=== PATIENT | male | born 1980 | race Caucasian/White ===

== ENCOUNTER 2020-01-28 23:48 | Emergency (ER) | payer OTHER, SELFPAY ==
--- NOTE | ~2020-01-28 | CT_ITS ---
EXAMINATION: CT abdomen pelvis w con DATE: 01/29/2020 05:59 INDICATION: Epigastric abdominal pain. TECHNIQUE: Computed tomography (CT) of the abdomen and pelvis was performed with 100 mL Omnipaque 350 intravenous contrast. Automated exposure control and iterative reconstruction technique were employe d. The dose-length product was 461.97 mGy-cm. COMPARISON: None. FINDINGS: The visualized portions of the lung bases demonstrate minimal atelectasis. No pleural effus ion. The heart size is normal. No pericardial effusion. The liver, spleen, gallbladder, pancreas, adr enal glands, and kidneys are normal. There are multiple dilated loops of small bowel with transition point in right abdomen. The appendix is not visualized. There are no pathologically enlarged lymph no enrique. There is trace ascites. There are chronic bilateral L5 pars defects. There is 9 mm anterolisthes is of L5 on S1. There is moderate lower lumbar spondylosis. IMPRESSION: 1. Small bowel obstruction. Reviewed, dictated and finalized at location A. IMPRESSION: 1. Small bowel obstruction.
[2020-01-28 23:50] VITALS: BP 152/99; PULSE 75; RESP 18; O2SAT 100
--- NOTE | 2020-01-29 00:02 | ECG_ITS ---
Measurements Intervals [place] Rate: 69 P: 35 AL: 145 QRS: 23 QRSD: 97 T: 27 QT: 382 QTc: 409 Interpretive Statements SINUS RHYTHM NORMAL ECG Electronically Signed On 01-29-2020 8:22:56 CDT by Shorty Andino D.O.
--- NOTE | 2020-01-29 00:17 | ED.ABDPAIN ---
HPI - Abdominal Pain General Chief Complaint: Abdominal Pain Stated Complaint: abdominal pain Source: patient Mode of arrival: ambulatory Limitations: no limitations History of Present Illness HPI narrative: This is a 39-year-old male that presents to the emergency department with abdominal pain that has intensified over the last 4 to 5 hours diffuse with some radiation into the epigastric area with nausea and vomiting, patient denies hematemesis, denies fever or chills, no chest pain no shortness of breath. Patient had a similar episode approximately 1 year ago and was told that it was gallstones. Patient no significant past medical history, social drinker no tobacco use MD elicited complaint: abdominal pain Pertinent past history: none Onset (ago): hour(s) Pain Consistency: constant Location: diffuse and epigastric Severity: severe Pain scale (0-10): 10 Quality: aching and sharp Radiation: epigastric Exacerbating factors: vomiting Relieving factors: nothing Associated symptoms: nausea and vomiting Related Data Home Medications Medication Instructions Recorded Confirmed No Home Medications 01/28/20 01/28/20 Allergies Allergy/AdvReac Type Severity Reaction Status Date / Time No Known Allergies Allergy Verified 01/28/20 23:57 Review of Systems Review of Systems: All systems reviewed & are unremarkable except as noted in HPI and below PMFSH Past Medical History Medical History (Updated 01/29/20 @ 01:57 by David Ackerman MD) Intussusception Patient denies medical problems Exam Const: General: no acute distress, alert and ill appearing Orientation/consciousness: patient oriented x3 HENMT: Head: normal to inspection Eyes: Conjunctivae: conjunctivae normal Pupils: Equal, round and reactive pupils present EOM: EOMs intact bilaterally Neck: Neck: normal visual inspection and no lymphadenopathy Chest: Chest palpation & inspection: normal inspection of the chest Resp: Effort & Inspection: normal respiratory effort Auscultation: clear to auscultation bilaterally Cardio: Rate: regular rate Rhythm: regular rhythm GI: GI Palp: Yes Soft to palpation, Yes Tenderness to palpation present (GI) and Yes Guarding due to palpation present (GI) Auscultation: Hyperactive bowel sounds present : General: Yes no CVA tenderness Male General Exam: Yes normal external exam Testes: Testes normal Back/Spine/Pelvis: Back: no CVA tenderness Skin: General skin exam: normal color Rashes: no rashes Neuro: General: patient oriented x3, moves all extremities, no meningeal signs and no focal motor deficits Extrem: General: normal to inspection and no pedal edema Psych: Appearance: grossly normal and well kempt Mental Status: mental status grossly normal Affect: normal affect Attitude: cooperative Thought content: Yes Normal thought content present Course Vital Signs Vital signs: Vital Signs Pulse Rate 75 01/28/20 23:50 Respiratory Rate 18 01/28/20 23:50 Blood Pressure 152/99 H 01/28/20 23:50 Pulse Oximetry 100 01/28/20 23:50 Pulse Rate 75 01/28/20 23:50 Respiratory Rate 18 01/28/20 23:50 Blood Pressure 152/99 H 01/28/20 23:50 Pulse Oximetry 100 01/28/20 23:50 MDM - Abdominal Pain Lab Data Result diagrams: 01/29/20 00:02 01/29/20 00:02 Labs: Lab Results 01/29/20 01/29/20 01/29/20 Range/Units 00:02 00:02 00:02 WBC 13.5 H (4.8-10.8) K/mm3 RBC 6.24 H (4.70-6.10) M/mm3 Hgb 17.9 (14.0-18.0) g/dL Hct 51.6 (40.0-54.0) % MCV 82.7 (78.0-102.0) fL MCH 28.7 (27.0-31.0) pg MCHC 34.7 (32.0-36.0) g/dL RDW 12.1 (11.6-14.4) % Plt Count 213 (150-420) K/mm3 MPV 9.2 (8.7-11.0) fl Immature Gran % (Auto) 0.4 H (0.0-0.0) % Neut % (Auto) 84.0 H (50.0-70.0) % Lymph % (Auto) 7.2 L (18.0-42.0) % [place] % (Auto) 8.0 (2.0-11.0) % Eos % (Auto) 0.2 L (1.0-6.0) % Baso % (Auto) 0.2
[2020-01-29] MEDS: ONDANSETRON INJ 4 MG/2 ML VIAL IV PUSH (00:20)
[2020-01-29] MEDS: MORPHINE SULFATE 4 MG/ML INJ IV PUSH (00:26)
[2020-01-29] MEDS: SODIUM CHLORIDE 0.9% IV 1,000 ML 999 ML IV CONT ×2 (00:28→01:50)
[2020-01-29] MEDS: PANTOPRAZOLE SODIUM IV 40 MG VIAL IV PUSH (00:28)
[2020-01-29 00:30] LABS: Hematocrit 51.6 % (40.0-54.0); Hemoglobin 17.9 g/dL (14.0-18.0); Mean Corpuscular Volume 82.7 fL (78.0-102.0); Red Blood Count 6.24 M/mm3 (4.70-6.10); White Blood Count 13.5 K/mm3 (4.8-10.8)
[2020-01-29 00:31] LABS: Immature Granulocyte Percent A 0.4 % (0.0-0.0); Mean Corpuscular HGB Conc 34.7 g/dL (32.0-36.0); Mean Corpuscular Hemoglobin 28.7 pg (27.0-31.0); Mean Platelet Volume 9.2 fl (8.7-11.0); Platelet Count Result 213 K/mm3 (150-420); Red Cell Distribution Width 12.1 % (11.6-14.4)
[2020-01-29 00:32] LABS: Basophils Absolute Auto 0.03 K/mm3 (0.00-0.10); Basophils Percent Auto 0.2 % (0.0-1.0); Eosinophils Absolute Auto 0.03 K/mm3 (0.02-0.50); Eosinophils Percent Auto 0.2 % (1.0-6.0); Immature Granulocyte Absolute 0.06 K/mm3 (0.00-0.00); Lymphocytes Absolute Auto 0.97 K/mm3 (1.10-4.50); Lymphocytes Percent Auto 7.2 % (18.0-42.0); Monocytes Absolute Auto 1.08 K/mm3 (0.10-0.90); Neutrophils Absolute Auto 11.4 K/mm3 (1.7-7.2)
[2020-01-29 00:47] LABS: INR 1.1; Prothrombin Time 10.9 Seconds (9.64-11.0)
[2020-01-29 00:48] LABS: Alanine Aminotransferase 28 U/L (16-63); Albumin Level 5.2 g/dL (3.4-5.0); Alkaline Phosphatase 75 U/L (46-116); Aspartate Amino Transferase 19 U/L (15-37); Bilirubin,Total 0.8 mg/dL (0.00-1.00); Blood Urea Nitrogen 17 mg/dL (7-18); Calcium 10.3 mg/dL (8.5-10.1); Carbon Dioxide 28 mmol/L (21-32); Chloride 99 mmol/L (98-108); Estimated CRCL calculation 85 ml/min; Estimated Glomerular Filt Rate > 60; Glucose 167 mg/dL (70-99); Lipase 135 U/L (73-393); Osmolality Calculated 293 mOsm/kg (285-295); Sodium 139 mmol/L (136-145); Total Protein 8.9 g/dL (6.4-8.2)
[2020-01-29 00:50] LABS: Lactic Acid 1.9 mmol/L (0.4-2.0); Troponin I < 0.02 ng/mL (0.00-0.056)
--- NOTE | 2020-01-29 01:27 | PC.NURSE ---
BROOK discussed CT results c pt. and pt. requests transfer to [facility]. Jamie Monreal notified, info. given and will await call back.
[2020-01-29 01:49] VITALS: BP 141/86; PULSE 100; RESP 20; O2SAT 98
--- NOTE | 2020-01-29 02:00 | PC.NURSE ---
Call placed back to Jason per Dr. Ackerman request, Jocelin states she will call surgeon per hospitalist request. Awaiting phone call back from Jason Abraham
[2020-01-29 02:16] VITALS: BP 137/84; PULSE 88; RESP 18; O2SAT 98
[2020-01-29] MEDS: MORPHINE SULFATE 2 MG/ML INJ IV PUSH (03:30)
[2020-01-29] MEDS: SODIUM CHLORIDE 0.9% IV 1,000 ML 200 ML IV CONT (03:30)
[2020-01-29 03:44] VITALS: BP 120/76; PULSE 90; RESP 18; TEMP 36.4; O2SAT 97
--- NOTE | 2020-01-29 03:49 | PC.NURSE ---
0345 Report given to GBAAS and pt, loaded for transfer c all paperwork. Pt. stable, reports feeling a little better. VSS.
== END 2020-01-29 03:45 | disposition short-term general hospital (02) ==
PROVIDERS: Emergency Provider Emergency Medicine; PCP Physician Assistant
DX: K56.609 Unspecified intestinal obstruction, unspecified as to partial versus complete obstruction (principal)
CPT/HCPCS: 36415; 74177; 80053; 83605; 83690; 84484; 85025; 85610; 85730; 93005; 96361; 96365; 96375; 96376; 99284; 99285; C9113; J0696; J2270; J2405; J7030; Q9965

== ENCOUNTER 2020-01-29 03:55 | Inpatient (IN) | payer OTHER, SELFPAY ==
--- NOTE | ~2020-01-29 | XR_ITS ---
EXAMINATION: XR abdomen obstructive series DATE: 01/29/2020 08:49 INDICATION: Small bowel obstruction. TECHNIQUE: Upright and supine views of the abdomen on 3 radiographs were obtained. COMPARISON: CT abdomen and pelvis 01/29/2020 FINDINGS: There are dilated loops of small bowel. The colon is decompressed. No free intraperitoneal gas. IMPRESSION: 1. Small bowel obstruction. Reviewed, dictated and finalized at location A. IMPRESSION: 1. Small bowel obstruction.
[2020-01-29 04:17] VITALS: BP 135/78; PULSE 71; RESP 18; TEMP 37; O2SAT 89; BMI 25.0
--- NOTE | 2020-01-29 05:15 | ADMGEN ---
This patient, Holger Puente, was admitted to 3 [facility] Surg Room 300-01. Patient/family oriented to hospital policies and general routines including ID bracelet, bed and alarms, visiting hours, pain management, procedures, bathroom and other care routines, personal items, smoking policy, room service/diet, and visiting hours. Valuables list has been completed. Information on how to activate the Rapid Response Team has been discussed. Patient/Family are encouraged to report perceived risks to care and to ask questions if they do not understand what they are told or what they should do.
[2020-01-29] MEDS: LACTATED RINGERS 1,000 ML 100 ML IV CONT (05:45)
[2020-01-29 05:48] LABS: Hematocrit 42.5 % (42.0-52.0); Hemoglobin 14.7 g/dL (14.0-18.0); Mean Corpuscular HGB Conc 34.6 g/dl (32-36); Mean Corpuscular Hemoglobin 28.8 pg (26-34); Mean Corpuscular Volume 83.3 fl (80-100); Mean Platelet Volume 9.2 fl (7.4-10.4); Platelet Count Result 181 k/mm3 (150-375); Red Cell Distribution Width 12.5 % (11.5-14.5); White Blood Count 10.2 K/mm3 (4.5-10.0)
[2020-01-29 06:00] VITALS: BP 126/73; PULSE 70; RESP 18; TEMP 36.8; O2SAT 100
[2020-01-29 06:00] LABS: Lactic Acid 0.8 mmol/L (0.7-2.1)
[2020-01-29 06:14] LABS: Blood Urea Nitrogen 13 mg/dL (9-20); Calcium 8.4 mg/dL (8.4-10.2); Carbon Dioxide 24 mmol/L (22-30); Chloride 107 mmol/L (98-107); Estimated CRCL calculation 123 ml/min; Estimated Glomerular Filt Rate > 60; Glucose 104 mg/dL (75-110); Magnesium 1.7 mg/dL (1.6-2.3); Sodium 137 mmol/L (137-145)
--- NOTE | 2020-01-29 07:46 | PC.NURSE ---
Addendum entered by Kristel Alfaro RN 01/29/20 07:50: Telephone report received at 0310. Original Note: Telephone report received from DEEPA Matthews at [facility].
--- NOTE | 2020-01-29 10:41 | PM.IMHP ---
H&P: HPI History of Present Illness Chief complaint: SBO Narrative: Holger Puente is a 39 year old male that presented to the emergency department in [place] with abdominal pain that has intensified over about 4 to 5 hours which was diffuse across the upper abdomen with some radiation into the epigastric area with nausea and vomiting. Patient denies hematemesis, denies fever or chills, no chest pain no shortness of breath. Patient had a similar episode approximately 1 year ago and was told that it was gallstones. Patient states that after the last episode he did have workup with a GI doctor out of [facility]. From his description he may have had an outpatient ultrasound and/or HIDA scan. He will try to find the results of this and get it to my office. Patient states that he has had is milder similar episodes about 3 or 4 times over the last 5 years which did not lead to hospitalization. His only previous surgery was an intussusception as an infant. He is not sure whether he still has his appendix. Patient no significant past medical history, social drinker no tobacco use. CT scan in the ER in [place] revealed what appeared to be a transition zone in the right lower quadrant and some dilated small bowel consistent with partial or complete small bowel obstruction. Therefore, patient was transferred here for further care. Patient states that since arrival here at [place] he has not had any further vomiting. He has notice passing a little bit of gas over the last couple hours. No bowel movement since just prior to the pain starting yesterday afternoon. He typically has 1 bowel movement to 2 bowel movements per day and they are usually solid. Review of Systems Constitutional: Constitutional: Reports as per HPI and Denies headache(s) Eyes: Eyes: Denies loss of vision and Denies eye pain ENT: Reports Normal hearing present, Denies change in voice, Denies dizziness and Denies headache(s) Cardiovascular: Cardiovascular: Denies chest pain and Denies dyspnea Respiratory: Respiratory: Denies dyspnea and Denies wheezing Gastrointestinal: Gastrointestinal: Reports as per HPI, Reports belching, Denies diarrhea and Denies loose stools Comments: Patient states that he has had few more mild episode similar to this. Couple of times it has been after eating a good amount of some fibrous foods. He is not sure whether is appendix is still in or not. He will try to get records or talk to his mother to see if she knows if that was removed at the time of his surgery in infancy. Musculoskeletal: Musculoskeletal: Denies back pain and Denies arthralgias Neurologic: Reports Normal hearing present, Denies dizziness, Denies headache(s), Denies loss of vision and Denies memory loss Psychiatric: Psychiatric: Denies memory loss and Denies panic attacks Endocrine: Endocrine: Reports no additional endocrine complaints Hematologic/Lymphatic: Hematologic/Lymphatic: Reports no additional hematologic/lymphatic complaints Allergic/Immunologic: Allergic/Immunologic: Denies wheezing PMFSH Past Medical History Medical History (Updated 01/29/20 @ 10:50 by Calixto Childress MD) Intussusception Patient denies medical problems Family History Family History (Updated 01/29/20 @ 05:31 by Kristel Alfaro RN) Other No pertinent family history Social History Social History Smoking status: Never smoker Second hand tobacco smoke exposure: No Alcohol intake: current Drinks per week: 12 Substance use: never Gender identity (if verbalized by the patient): Male Spiritual care concerns: No Meds Home Medications and Allergies Home Medications Medication Instructions Recorded Confirmed Type No Home Medications 01/28/20 01/29/20 History Allergies Allergy/AdvReac Type Severity Reaction Status Date / Time No Known Allergies Allergy Verified 01/28/20 23:57 Vital Signs
[2020-01-29 14:00] VITALS: BP 128/72; PULSE 73; RESP 18; TEMP 36.9; O2SAT 100
[2020-01-29 22:00] VITALS: BP 115/58; PULSE 64; RESP 16; TEMP 36.6; O2SAT 100
[2020-01-30] MEDS: LACTATED RINGERS 1,000 ML 100 ML IV CONT (02:04)
[2020-01-30 06:00] VITALS: BP 123/79; PULSE 55; RESP 16; TEMP 36.5; O2SAT 100
[2020-01-30 06:40] LABS: Basophils Percent Auto 0.6 % (0.2-1.2); Eosinophils Absolute Auto 0.2 K/mm3 (0-0.3); Eosinophils Percent Auto 2.9 % (0-4.4); Hematocrit 40.5 % (42.0-52.0); Hemoglobin 13.7 g/dL (14.0-18.0); Immature Granulocyte Absolute 0.02 K/mm3 (0.00-0.031); Immature Granulocyte Percent A 0.4 % (0-0.5); Lymphocytes Absolute Auto 1.69 K/mm3 (0.9-3.2); Lymphocytes Percent Auto 32.8 % (18.3-44.2); Mean Corpuscular HGB Conc 33.8 g/dl (32-36); Mean Corpuscular Hemoglobin 28.4 pg (26-34); Mean Corpuscular Volume 83.9 fl (80-100); Mean Platelet Volume 9.2 fl (7.4-10.4); Monocytes Absolute Auto 0.6 K/mm3 (0.1-0.6); Monocytes Percent Auto 10.7 % (2.6-8.5); Neutrophils Absolute Auto 2.7 K/mm3 (1.3-6.7); Neutrophils Percent Auto 52.6 % (45.5-73.1); Platelet Count Result 154 k/mm3 (150-375); Red Blood Count 4.83 M/mm3 (4.6-6.20); Red Cell Distribution Width 12.5 % (11.5-14.5); White Blood Count 5.2 K/mm3 (4.5-10.0)
[2020-01-30 06:55] LABS: Lactic Acid 0.9 mmol/L (0.7-2.1)
[2020-01-30 06:58] LABS: Blood Urea Nitrogen 10 mg/dL (9-20); Calcium 8.3 mg/dL (8.4-10.2); Carbon Dioxide 27 mmol/L (22-30); Chloride 106 mmol/L (98-107); Estimated CRCL calculation 123 ml/min; Estimated Glomerular Filt Rate > 60; Glucose 92 mg/dL (75-110); Potassium 3.9 mmol/L (3.4-5.0); Sodium 137 mmol/L (137-145)
--- NOTE | 2020-01-30 09:13 | P.DS_ITS ---
DS: Diagnosis Admitting Diagnosis Admitting Diagnosis: Unspecified intestinal obstruction, unspecified as to parti al versus complete obstruction Discharge Diagnosis (1) Small bowel obstruction due to adhesions: Code(s): K56.50 - Intestinal adhesions [bands], unspecified as to partial versus complete obstruction Status: Acute Assessment and Plan: resolved with IV fluids and observation DS: Summary Time Spent with Patient Time attestation: Total time spent providing and/or coordinating discharge services: patient is a 39-year-old man who came to the emergency room in the evening and night of January 27. He was evaluated for abdominal pain along the upper abdomen with radiation, nausea and vomiting. He has had episodes similar to this before. He had surgery for intussusception as an infant but no surgery since then. After being observed overnight he was started on liquids and his abdominal pain had resolved. On Saturday, January 29, he was comfortable with no further pain and a normal abdominal exam. He was able to be discharged on January 29. He will follow up with Dr. Childress regarding evaluation of these recurrent symptoms. In the emergency room this admission, his CT scan suggested a small bowel obstruction with a right lower quadrant transition zone. Exam GI: Inspection: non-distended and scar ( Right lower quadrant) GI Palp: No abdominal tenderness and Yes Soft to palpation Auscultation: normal bowel sounds DS: Data Data Completed and Pending Labs on day of discharge: Labs from last 24 hours 01/30/20 01/30/20 01/30/20 06:03 06:03 06:03 WBC 5.2 RBC 4.83 Hgb 13.7 L Hct 40.5 L MCV 83.9 MCH 28.4 MCHC 33.8 RDW 12.5 Plt Count 154 MPV 9.2 Immature Gran % (Auto) 0.4 Neut % (Auto) 52.6 Lymph % (Auto) 32.8 [place] % (Auto) 10.7 H Eos % (Auto) 2.9 Baso % (Auto) 0.6 Lymph # (Auto) 1.69 [place] # (Auto) 0.6 Eos # (Auto) 0.2 Baso # (Auto) 0.0 Abs Immat Gran (auto) 0.02 Absolute Neuts (auto) 2.7 Absolute Nucleated RBC 0.0 Nucleated RBC % 0.0 Sodium 137 Potassium 3.9 Chloride 106 Carbon Dioxide 27 BUN 10 Creatinine 0.80 Estim Creat Clear Calc 123 Estimated GFR > 60 Glucose 92 Lactic Acid 0.9 Calcium 8.3 L Discharge Plan Discharge Attending physician on discharge: Calixto Childress Discharging Clinician: Nicolas Shea Anticipated Discharge Date/Time: 01/30/20 09:19 Patient Disposition: Home, Self-Care Activity: may shower and as tolerated Diet: regular Discharge Instructions: resume normal activities as tolerated Patient Instructions: Acute Abdominal Pain (DC), Bowel Obstruction (DC), Antibiotic Form Stand Alone Forms: General Discharge Information Follow-up/Referrals: Calixto Childress MD [Physician] - 3 Weeks Discharge Medications: No Action No Home Medications RF: 0 Date of admission: 01/29/20 04:39 Primary Care Provider: BettyHonorio Admitting Provider: Calixto Childress Attending physician on admission: Calixto Childress
== END 2020-01-30 11:35 | disposition home or self-care (01) | DRG 390 ==
PROVIDERS: Admitting Provider Surgery; PCP Physician Assistant; Visit Provider Surgery
DX: K56.609 Unspecified intestinal obstruction, unspecified as to partial versus complete obstruction (principal)
CPT/HCPCS: 36415; 74019; 80048; 83605; 83735; 85025; 85027; J7120

== ENCOUNTER 2020-02-12 08:44 | Outpatient (CLI) | payer OTHER, SELFPAY ==
--- NOTE | ~2020-02-12 | XR_ITS ---
EXAMINATION: XR UGIAC w small bowel DATE: 02/12/2020 09:47 INDICATION: Intestinal adhesions. Small bowel obstruction. TECHNIQUE: The patient drank thick barium, gas-producing crystals, and thin barium. Fluoroscopy of th e esophagus, stomach, and small bowel was performed. Fluoroscopy exposure time was 0.2 minutes. Radio graphs of the abdomen were obtained. The total number of images was 191. COMPARISON: CT abdomen and pelvis 01/29/2020 FINDINGS: UPPER GASTROINTESTINAL SERIES: There is no mass or stricture of the esophagus. Esophageal motility is normal. There is no hiatal her edd. There was no gastroesophageal reflux with provocative maneuvers. The stomach shows a normal fold ing pattern. SMALL BOWEL SERIES: The small bowel shows a normal folding pattern. No dilated bowel. No mass or stricture. Transit time to the colon was 30 minutes. IMPRESSION: 1. Normal upper gastrointestinal series. 2. Normal small bowel series. Reviewed, dictated and finalized at location A.
== END 2020-02-12 08:45 | disposition home or self-care (01) ==
PROVIDERS: PCP Physician Assistant; Visit Provider Surgery
DX: K56.50 Intestinal adhesions [bands], unspecified as to partial versus complete obstruction (principal)
CPT/HCPCS: 74246; 74248

== ENCOUNTER 2023-05-31 09:41 | Outpatient (CLI) | payer BC, SELFPAY ==
--- NOTE | ~2023-05-31 | XR_ITS ---
AP and lateral views of the right hip Clinical history: Pain Findings: No acute fracture or dislocation is seen. Osseous alignment is anatomic. Right hip joint an d right SI joint are preserved. Soft tissues are unremarkable. Impression: No significant abnormality is seen. Reviewed, dictated and finalized at [facility]. Impression: No significant abnormality is seen.
== END 2023-05-31 09:42 | disposition home or self-care (01) ==
PROVIDERS: PCP Physician Assistant; Visit Provider Physician Assistant
DX: M25.551 Pain in right hip (principal)
CPT/HCPCS: 73502

== ENCOUNTER 2024-12-09 10:09 | Outpatient (CLI) | payer OTHER, SELFPAY ==
--- NOTE | ~2024-12-09 | XR_ITS ---
3 VIEWS LUMBAR SPINE Ordering provider: Honorio Hernández, KEITH History: . acutE LBP,RADIATES INTO RT SCIATICA/LEG,NKI,DISC BULDGE? . Comparison: None. FINDINGS: VERTEBRAL BODIES:Spondylolysis seen at the level of L5-S1. First-degree anterolisthesis seen at the l evel of L5-S1. Otherwise, No visible fracture or subluxation. Degenerative changes of the spine. DISK SPACES: Narrowing of the disc L4-L5 and L5-S1. SOFT TISSUES: Normal. IMPRESSION: No acute osseous abnormality lumbar spine. Multilevel degenerative disc disease. 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 Reviewed, dictated and finalized at location A.
--- OUTSIDE RECORDS SUMMARY | 2024-12-09 11:29 | XMS_ITS | Data Portability ---
Author Organization [facility]ICA[facility] Address [address] [place] [address] Care Team Providers Care Suggestion Clerk Name Role Phone SONAM HERNÁNDEZ Primary Care Provider Assessment No assessment recorded. Plan of Treatment Reminders Order Date Submit Date Provider Last Modified By Organization Details Last Modified Time Details Appointments None recorded. Lab testosteron e, free + total, serum 2023 024 [facility], [address] [place] [address], [address], 4 11:14:55 testosteron e, free + total, serum 2023 024 [facility], [address] [place] [address] 2, [place], [address], 4 17:10:47 CBC 2023 024 [facility], [address] [place] [address] 2, [place], [address], 4 17:10:51 CMP, serum or plasma 2023 024 [facility], [address] [place] [address], [facility] 2, [place], [address], 4 17:10:49 lipid panel, serum 2023 024 [facility], [address] [place] [address], [facility] 2, [place], [address], 4 17:10:48 HbA1c (hemoglobin A1c), blood 2023 024 [facility], [address] [facility], [facility] 2, [place], [address], 4 17:10:50 CBC 2023 024 [facility], [address] [facility], [facility] 2, [place], [address], 4 06:50:05 CMP, serum or plasma 2023 024 [facility], [address] [facility], [facility] 2, [place], [address], 4 06:50:04 lipid panel, serum 2023 024 [facility], [address] [facility], [facility] 2, [place], [address], 4 06:50:03 testosteron e, free + total, serum 2023 024 [facility], [address] [facility], [facility] 2, [place], [address], 4 06:50:02 Referral None recorded. Procedures None recorded. Surgeries None recorded. Imaging XR, lumbar spine 2024 025 [facility], [address] [facility], [place], [address], 5 14:15:02 Medication Orders naproxen 500 mg tablet 2024 025 [id number], [address], [place], [id number], 5 14:15:08 triamcinolo ne acetonide 0.1 % topical cream 2023 025 [id number], [address], [place], [place], [id number], 13:58:50 Patient TargetsNo targets recorded. Patient Instructions Encounter Date Encounter Id Patient Instructions Last Modified By Organization Details Last Modified Time 11/01/2023 [id number] A healthy lifestyle: care instructions jnanney Not available 11/01/2023 10:47:59 hypogonadism: care instructions jnanney Not available 11/01/2023 10:47:59 11/22/2023 [id number] A healthy lifestyle: care instructions jnanney Not available 11/22/2023 10:35:44 hypogonadism: care instructions jnanney Not available 11/22/2023 10:35:44 05/22/2024 [id number] A healthy lifestyle: care instructions jnanney Not available 05/22/2024 11:02:28 hypogonadism: care instructions jnanney Not available 05/22/2024 10:59:15 06/26/2024 [id number] hypogonadism: care instructions jnanney Not available 06/26/2024 10:11:30 12/04/2024 [id number] A healthy lifestyle: care instructions jnanney Not available 12/04/2024 14:13:06 hypogonadism: care instructions jnanney Not available 12/04/2024 14:13:06 Reason for Referral None Reported. Results Created Date Observation Date Name Description Value Unit Range Abnormal Flag Note LastModifiedBy Organization Detail LastModifiedTime 11/01/19 24 11/02/2023 TESTO STERO NE,FR EE AND TOTAL testosterone 203 NG/dL 264-91 6 below low normal Adult male refer ence inter celestino is based on a popul ation of healt hy nonob danny males (BMI <30) betwe en 19 and 39 years old. Renae mcmanus, et.al . JCEM 2017, 102;1 161-1 173. PMID: 94103 103. Not Available [facility] [address] [place] [address], [address], 11/10/2023 06:50:02 11/01/19 24 11/10/2023 TESTO STERO NE,FR EE AND TOTAL free testosterone (direct) 9.3 pg/mL 6.8-21 .5 Not Available [address], [address], 11/10/2023 06:50:02 11/01/19 24 11/02/2023 LIPID PANEL cholesterol, total 153 mg/dL 100-19 9 Not Available [address], [address], 11/10/2023 06:50:03 11/01/19 24 11/02/2023 LIPID PANEL triglyceride s 146 mg/dL 0-149 Not Available [address], [address], 11/10/2023 06:50:03 11/01/19 24 11/02/2023 LIPID PANEL HDL cholesterol 37 mg/dL >39 below low normal Not Available [address], [address], 11/10/2023 06:50:03 11/01/19 24 11/02/2023 LIPID PANEL VLDL cholesterol kiara 26 mg/dL 5-40 Not Available [address], [address], 11/10/2023 06:50:03 11/01/19 24 11/02/2023 LIPID PANEL LDL chol calc ([facility]) 90 mg/dL 0-99 Not Available [address], [address], 11/10/2023 06:50:03 11/01/19 24 11/02/2023 COMP. METAB OLIC PANEL (14) glucose 74 mg/dL 70-99 Not Available [address], [address], 11/10/2023 06:50:03 11/01/19 24 11/02/2023 COMP. METAB OLIC PANEL (14) BUN 13 mg/dL 6-24 Not Available [address], [address], 11/10/2023 06:50:03 11/01/19 24 11/02/2023 COMP. METAB OLIC PANEL (14) creatinine 0.96 mg/dL 0.76-1 .27 Not Available [address], [address], 11/10/2023 06:50:03 11/01/19 24 11/02/2023 COMP. METAB OLIC PANEL (14) eGFR 101 mL/mi n/1.7 3 >59 Not Available [address], [address], 11/10/2023 06:50:03 11/01/19 24 11/02/2023 COMP. METAB OLIC PANEL (14) BUN/creatini ne ratio 14 9-20 Not Available [address], [address], 11/10/2023 06:50:03 11/01/19 24 11/02/2023 COMP. METAB OLIC PANEL (14) sodium 140 mmol/ L 134-14 4 Not Available [address], [address], 11/10/2023 06:50:03 11/01/19 24 11/02/2023 COMP. METAB OLIC PANEL (14) potassium 4.1 mmol/ L 3.5-5. 2 Not Available [address], [address], 11/10/2023 06:50:03 11/01/19 24 11/02/2023 COMP. METAB OLIC PANEL (14) chloride 102 mmol/ L 96-106 Not Available [address], [address], 11/10/2023 06:50:03 11/01/19 24 11/02/2023 COMP. METAB OLIC PANEL (14) carbon dioxide, total 23 mmol/ L 20-29 Not Available [address], [address], 11/10/2023 06:50:03 11/01/19 24 11/02/2023 COMP. METAB OLIC PANEL (14) calcium 9.5 mg/dL 8.7-10 .2 Not Available [address], [address], 11/10/2023 06:50:03 11/01/19 24 11/02/2023 COMP. METAB OLIC PANEL (14) protein, total 7.4 g/dL 6.0-8. 5 Not Available [address], [address], 11/10/2023 06:50:03 11/01/19 24 11/02/2023 COMP. METAB OLIC PANEL (14) albumin 4.9 g/dL 4.1-5. 1 Not Available [address], [address], 11/10/2023 06:50:03 11/01/19 24 11/02/2023 COMP. METAB OLIC PANEL (14) globulin, total 2.5 g/dL 1.5-4. 5 Not Available [address], [address], 11/10/2023 06:50:03 11/01/19 24 11/02/2023 COMP. METAB OLIC PANEL (14) A/G ratio 2.0 1.2-2. 2 Not Available [address], [address], 11/10/2023 06:50:03 11/01/19 24 11/02/2023 COMP. METAB OLIC PANEL (14) bilirubin, total 0.4 mg/dL 0.0-1. 2 Not Available [address], [address], 11/10/2023 06:50:03 11/01/19 24 11/02/2023 COMP. METAB OLIC PANEL (14) alkaline phosphatase 73 IU/L 44-121 Not Available [address], [address], 11/10/2023 06:50:03 11/01/19 24 11/02/2023 COMP. METAB OLIC PANEL (14) AST (SGOT) 21 IU/L 0-40 Not Available [address], [address], 11/10/2023 06:50:03 11/01/19 24 11/02/2023 COMP. METAB OLIC PANEL (14) ALT (SGPT) 24 IU/L 0-44 Not Available [address], [address], 11/10/2023 06:50:03 11/01/19 24 11/02/2023 CARDI OVASC ULAR REPOR T interpretati on Note Suppl grecia melendrez repor t is avail able. Not Available [address], [address], 11/10/2023 06:50:04 11/01/19 24 11/02/2023 CARDI OVASC ULAR REPOR T pdf . Not Available [address], [address], 11/10/2023 06:50:04 11/01/19 24 11/02/2023 CBC, PLATE LET, NO DIFFE RENTI AL WBC 5.8 x10e3 /uL 3.4-10 .8 Santosh ified by repea t valente sis Not Available [address] [place], [address], 11/10/2023 06:50:05 11/01/19 24 11/02/2023 CBC, PLATE LET, NO DIFFE RENTI AL RBC 6.39 x10e6 /uL 4.14-5 .80 above high normal Not Available [address], [address], 11/10/2023 06:50:05 11/01/19 24 11/02/2023 CBC, PLATE LET, NO DIFFE RENTI AL hemoglobin 17.9 g/dL 13.0-1 7.7 above high normal Not Available [address], [address], 11/10/2023 06:50:05 11/01/19 24 11/02/2023 CBC, PLATE LET, NO DIFFE RENTI AL hematocrit 52.8 % 37.5-5 1.0 above high normal Not Available [address], [address], 11/10/2023 06:50:05 11/01/19 24 11/02/2023 CBC, PLATE LET, NO DIFFE RENTI AL MCV 83 fL 79-97 Not Available [address], [address], 11/10/2023 06:50:05 11/01/19 24 11/02/2023 CBC, PLATE LET, NO DIFFE RENTI AL MCH 28.0 pg 26.6-3 3.0 Not Available [address], [address], 11/10/2023 06:50:05 11/01/19 24 11/02/2023 CBC, PLATE LET, NO DIFFE RENTI AL MCHC 33.9 g/dL 31.5-3 5.7 Not Available [address], [address], 11/10/2023 06:50:05 11/01/19 24 11/02/2023 CBC, PLATE LET, NO DIFFE RENTI AL RDW 12.7 % 11.6-1 5.4 Not Available [address], [address], 11/10/2023 06:50:05 11/01/19 24 11/02/2023 CBC, PLATE LET, NO DIFFE RENTI AL platelets 223 x10e3 /uL 150-45 0 Not Available [address], [address], 11/10/2023 06:50:05 05/22/20 24 05/23/2024 TESTO STERO NE,FR EE AND TOTAL testosterone >1500 above high normal Adult male refer ence inter celestino is based on a popul ation of healt hy nonob danny males (BMI <30) betwe en 19 and 39 years old. Renae mcmanus et.al . JCEM 2017, 102;1 161-1 173. PMID: 20847 103. Not Available [address], [address], 05/27/2024 17:10:47 05/22/20 24 05/27/2024 TESTO STERO NE,FR EE AND TOTAL free testosterone (direct) 41.0 pg/mL 6.8-21 .5 above high normal Not Available [address], [address], 05/27/2024 17:10:47 05/22/20 24 05/23/2024 LIPID PANEL cholesterol, total 161 mg/dL 100-19 9 Not Available [address], [address], 05/27/2024 17:10:48 05/22/20 24 05/23/2024 LIPID PANEL triglyceride s 266 mg/dL 0-149 above high normal Not Available [address], [address], 05/27/2024 17:10:48 05/22/20 24 05/23/2024 LIPID PANEL HDL cholesterol 33 mg/dL >39 below low normal Not Available [address], [address], 05/27/2024 17:10:48 05/22/2005/23/2024 LIPID PANEL VLDL cholesterol kiara 44 mg/dL 5-40 above high normal Not Available [address], [address], 05/27/2024 17:10:48 05/22/20 24 05/23/2024 LIPID PANEL LDL chol calc (nih) 84 mg/dL 0-99 Not Available [address], [address], 05/27/2024 17:10:48 05/22/20 24 05/23/2024 COMP. METAB OLIC PANEL (14) glucose 82 mg/dL 70-99 Not Available [address], [address], 05/27/2024 17:10:49 05/22/20 24 05/23/2024 COMP. METAB OLIC PANEL (14) BUN 15 mg/dL 6-24 Not Available [address], [address], 05/27/2024 17:10:49 05/22/20 24 05/23/2024 COMP. METAB OLIC PANEL (14) creatinine 1.12 mg/dL 0.76-1 .27 Not Available [address], [address], 05/27/2024 17:10:49 05/22/20 24 05/23/2024 COMP. METAB OLIC PANEL (14) eGFR 84 mL/mi n/1.7 3 >59 Not Available [address], [address], 05/27/2024 17:10:49 05/22/20 24 05/23/2024 COMP. METAB OLIC PANEL (14) BUN/creatini ne ratio 13 9-20 Not Available [address], [address], 05/27/2024 17:10:49 05/22/20 24 05/23/2024 COMP. METAB OLIC PANEL (14) sodium 140 mmol/ L 134-14 4 Not Available [address], [address], 05/27/2024 17:10:49 05/22/20 24 05/23/2024 COMP. METAB OLIC PANEL (14) potassium 4.3 mmol/ L 3.5-5. 2 Not Available [address], [address], 05/27/2024 17:10:49 05/22/20 24 05/23/2024 COMP. METAB OLIC PANEL (14) chloride 101 mmol/ L 96-106 Not Available [address], [address], 05/27/2024 17:10:49 05/22/20 24 05/23/2024 COMP. METAB OLIC PANEL (14) carbon dioxide, total 25 mmol/ L 20-29 Not Available [address], [address], 05/27/2024 17:10:49 05/22/20 24 05/23/2024 COMP. METAB OLIC PANEL (14) calcium 9.6 mg/dL 8.7-10 .2 Not Available [address], [address], 05/27/2024 17:10:49 05/22/20 24 05/23/2024 COMP. METAB OLIC PANEL (14) protein, total 7.2 g/dL 6.0-8. 5 Not Available [address], [address], 05/27/2024 17:10:49 05/22/2005/23/2024 COMP. METAB OLIC PANEL (14) albumin 4.7 g/dL 4.1-5. 1 Not Available [address], [address], 05/27/2024 17:10:49 05/22/2005/23/2024 COMP. METAB OLIC PANEL (14) globulin, total 2.5 g/dL 1.5-4. 5 Not Available [address], [address], 05/27/2024 17:10:49 05/22/20 24 05/23/2024 COMP. METAB OLIC PANEL (14) bilirubin, total 0.5 mg/dL 0.0-1. 2 Not Available [address], [address], 05/27/2024 17:10:49 05/22/2005/23/2024 COMP. METAB OLIC PANEL (14) alkaline phosphatase 59 IU/L 44-121 Not Available [address], [address], 05/27/2024 17:10:49 05/22/2005/23/2024 COMP. METAB OLIC PANEL (14) AST (SGOT) 27 IU/L 0-40 Not Available [address], [address], 05/27/2024 17:10:49 05/22/20 24 05/23/2024 COMP. METAB OLIC PANEL (14) ALT (SGPT) 30 IU/L 0-44 Not Available [address], [address], 05/27/2024 17:10:49 05/22/20 24 05/23/2024 CARDI OVASC ULAR REPOR T interpretati on Note Suppl ement al repor t is avail able. Not Available [address], [address], 05/27/2024 17:10:50 05/22/20 24 05/23/2024 CARDI OVASC ULAR REPOR T pdf . Not Available [address], [address], 05/27/2024 17:10:50 05/22/20 24 05/23/2024 HEMOG LOBIN A1C hemoglobin A1C 5.6 % 4.8-5. 6 Predi abete s: 5.7 - 6.4 Diabe bud: >6.4 Glyce skyler contr ol for adult s with diabe bud: <7.0 Not Available [address], [address], 05/27/2024 17:10:50 05/22/20 24 05/23/2024 CBC, PLATE LET, NO DIFFE RENTI AL WBC 7.9 x10e3 /uL 3.4-10 .8 Not Available [address], [address], 05/27/2024 17:10:51 05/22/2005/23/2024 CBC, PLATE LET, NO DIFFE RENTI AL RBC 6.10 x10e6 /uL 4.14-5 .80 above high normal Not Available [address], [address], 05/27/2024 17:10:51 05/22/20 24 05/23/2024 CBC, PLATE LET, NO DIFFE RENTI AL hemoglobin 18.1 g/dL 13.0-1 7.7 above high normal Not Available [address], [address], 05/27/2024 17:10:51 05/22/20 24 05/23/2024 CBC, PLATE LET, NO DIFFE RENTI AL hematocrit 54.7 % 37.5-5 1.0 above high normal Not Available [address], [address], 05/27/2024 17:10:51 05/22/2005/23/2024 CBC, PLATE LET, NO DIFFE RENTI AL MCV 90 fL 79-97 Not Available [address], [address], 05/27/2024 17:10:51 05/22/2005/23/2024 CBC, PLATE LET, NO DIFFE RENTI AL MCH 29.7 pg 26.6-3 3.0 Not Available [address], [address], 05/27/2024 17:10:51 05/22/2005/23/2024 CBC, PLATE LET, NO DIFFE RENTI AL MCHC 33.1 g/dL 31.5-3 5.7 Not Available [address], [address], 05/27/2024 17:10:51 05/22/2005/23/2024 CBC, PLATE LET, NO DIFFE RENTI AL RDW 13.1 % 11.6-1 5.4 Not Available [address], [address], 05/27/2024 17:10:51 05/22/2005/23/2024 CBC, PLATE LET, NO DIFFE RENTI AL platelets 199 x10e3 /uL 150-45 0 Not Available [facility] [address] [place] [address], [place], [address], 05/27/2024 17:10:51 06/26/20 24 06/27/2024 TESTO STERO NE,FR EE AND TOTAL testosterone 98 NG/dL 264-91 6 below low normal Adult male refer ence inter celestino is based on a popul ation of healt hy nonob danny males (BMI <30) betwe en 19 and 39 years old. Renae mcmanus, et.al . JCEM 2017, 102;1 161-1 173. PMID: 05599 103. Not Available [facility] ([facility]) [address] [facility], [place], [address], 07/02/2024 11:14:55 06/26/20 24 07/02/2024 TESTO STERO NE,FR EE AND TOTAL free testosterone (direct) 4.8 pg/mL 6.8-21 .5 below low normal Not Available [facility] ([facility]) [address] [facility], [place], [address], 07/02/2024 11:14:55 Result Notes None recorded. Problems No Known Problems Medical Equipment None Reported. Allergies No known drug allergies Medications Name Sig Start Date Stop Date Status Note LastModified by Organization Details LastModified Time prednisone 10 mg tablet 11/08 completed Not Available Not Available Not Available prednisone 20 mg tablet Take 3 tablets every day by oral route for 5 days. 03/21 completed Not Available Not Available Not Available acetaminoph en 300 mg-codeine 30 mg tablet TAKE 1 TO 2 TABLETS BY MOUTH EVERY 6 HOURS NEEDED FOR PAIN 05/24 completed Not Available Not Available Not Available triamcinolo ne acetonide 0.1 % topical cream APPLY A THIN LAYER TO THE AFFECTED AREA(S) BY TOPICAL ROUTE 2 TIMES PER DAY 12/04 completed Not Available Not Available Not Available BD Luer-Huong Syringe 3 mL 23 gauge x 1 1/2 USE DIRECTED WITH TESTOSTER ONE active Not Available Not Available No t Available neomycin-po lymyxin-dex ameth 3.5 mg/mL-10,00 0 unit/mL-0.1 % eye drops SHAKE LIQUID AND INSTILL 1 DROP IN LEFT EYE FOUR TIMES DAILY FOR 5 DAYS 11/08 completed Not Available Not Available Not Available testosteron e cypionate 200 mg/mL intramuscul ar oil ADMINISTE R 1 ML IN THE MUSCLE EVERY WEEK 2024 active Not Available Not Available Not Avai lable ibuprofen 600 mg tablet TAKE 1 TABLET BY MOUTH EVERY 6 HOURS FOR 5 DAYS THEN 1 TABLET EVERY 6 HOURS NEEDED FOR PAIN 05/24 completed Not Available Not Available Not Available albuterol sulfate HFA 90 mcg/actuati on aerosol inhaler INHALE 2 PUFFS BY MOUTH EVERY 6 HOURS NEEDED FOR WHEEZING OR SHORTNESS OF BREATH 12/04 completed Not Available Not Available Not Available ondansetron 4 mg disintegrat ing tablet 11/08 completed Not Available Not Available Not Available fluticasone propionate 50 mcg/actuati on nasal spray,suspe nsion SHAKE LIQUID AND USE 2 SPRAYS IN EACH NOSTRIL DAILY 12/04 completed Not Available Not Available Not Available dicyclomine 10 mg capsule Take 1 capsule 3 times a day by oral route as needed for 10 days. 05/24 completed Not Available Not Available Not Available naproxen 500 mg tablet Take 1 tablet twice a day by oral route for 90 days. 2024 active Not Available Not Available Not Avai lable amoxicillin 875 mg-potassiu m clavulanate 125 mg tablet TAKE 1 TABLET BY MOUTH TWICE DAILY FOR 10 DAYS 12/04 completed Not Available Not Available Not Available chlorhexidi ne gluconate 0.12 % mouthwash START DAY AFTER SURGERY. SWISH 10 TO 15 ML IN MOUTH AND SPIT TWICE DAILY FOR 1 WEEK. NOTHING BY MOUTH 30 MINUTES AFTER USE 05/24 completed Not Available Not Available Not Available Xyosted 50 mg/0.5 mL subcutaneou s auto-inject or ADMINISTE R 0.5 ML UNDER THE SKIN EVERY WEEK 06/17 completed Not Available Not Available Not Available ID NOW COVID-19 Test Kit TEST DIRECTED TODAY 03/21 completed Not Available Not Available Not Available Vitals Date Recorded Body height Body mass index (BMI) Body weight Oxygen saturation Oxygen saturation in Arterial blood by Pulse oximetry Heart rate Respiratory rate Body temperature Systolic blood pressure Diastolic blood pressure Provider Name and Address Organization Details Last Updated DateTime 4 185.42 cm 27.8 kg/m2 75014.9 9 g 99 % 99 % 62 /min 16 /min 98.2 [degF] 149 mm[Hg] 87 mm[Hg] Janny Joy MA [facility] 4 10:38:12 Date Recorded Body height Body mass index (BMI) Body weight Heart rate Oxygen saturation Oxygen saturation in Arterial blood by Pulse oximetry Systolic blood pressure Diastolic blood pressure Provider Name and Address Organization Details Last Updated DateTime 4 185.42 cm 28.2 kg/m2 36534.9 7 g 95 /min 96 % 96 % 160 mm[Hg] 95 mm[Hg] Misty Wallace MA [facility] 4 10:22:46 Date Recorded Body height Body mass index (BMI) Body weight Oxygen saturation Oxygen saturation in Arterial blood by Pulse oximetry Heart rate Provider Name and Address Organization Details Last Updated DateTime 4 185.42 cm 28.9 kg/m2 75661.7 3 g 99 % 99 % 67 /min Misty Wallace MA [facility] 4 10:52:24 Date Recorded Systolic blood pressure Diastolic blood pressure Provider Name and Address Organization Details Last Updated DateTime 05/22/2024 132 mm[Hg] 78 mm[Hg] Sonam Hernández PA-C Attn: Accounting,[address] [place], [address], [facility] 05/22/2024 11:02:53 Date Recorded Body height Body mass index (BMI) Body weight Respiratory rate Oxygen saturation Oxygen saturation in Arterial blood by Pulse oximetry Heart rate Systolic blood pressure Diastolic blood pressure Provider Name and Address Organization Details Last Updated DateTime 5 185.42 cm 28.9 kg/m2 68635.7 3 g 16 /min 98 % 98 % 83 /min 142 mm[Hg] 86 mm[Hg] Janny Joy MA [facility] 5 14:00:28 Social History Question Answer Notes LastModified by Organizat ion Details LastModified Time Tobacco Smoking Status Never Smoker Yris Braxton MA [facility], [place] - [facility] 05/20/2018 10:15:44 What Is Your Level Of Alcohol Consumption? Occasional Information not available 11/08/2021 What Is Your Level Of Caffeine Consumption? Occasional Information not available 11/08/2021 In The 14 Days Before Symptom Onset, Have You Had Close Contact With A Laboratory-confir med COVID-19 While That Case Was Ill? No Information not available 11/08/2021 In The 14 Days Before Symptom Onset, Have You Had Close Contact With A Person Who Is Under Investigation For COVID-19 While That Person Was Ill? No Information not available 11/08/2021 Have You Been To An Area Known To Be High Risk For COVID-19? No Information not available 11/08/2021 Are You Currently Employed? Yes Information not available 03/21/2022 What Type Of Diet Are You Following? 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 12/04/2024 [email or web address] Information not available 12/04/2024 What Is Your Relationship Status? Information not available 11/08/2021 Do You Have Smoke And Carbon Monoxide Detectors In Your Home? Yes Information not available 11/08/2021 Do You Feel Stressed (tense, Restless, Nervous, Or Anxious, Or Unable To Sleep At Night)? [id number] Information not available 03/21/2022 Do You Use Any Illicit Or Recreational Drugs? No Information not available 03/21/2022 Has Tobacco Cessation Counseling Been Provided? No Information not available 03/21/2022 Do You Or Have You Ever Used Any Other Forms Of Tobacco Or Nicotine? No Information not available 03/21/2022 Sex: Unknown Functional Status None recorded. Mental Status None recorded. Family History Relationship Description Onset Age of this Age Resolved Age Notes LastModified by Organization Details LastModified Time Father No current problems or disability [email or web address] Not available 12/2017 10:15:57 Mother No current problems or disability [email or web address] Not available 12/2017 10:15:57 Medical History Condition Response Coronary Artery Disease N Other N High Blood Pressure N Atrial Fibrillation N Kidney or Bladder Problems N Thyroid Problems N Blood Clots N COPD N Depression N GI Problems N Skin Problems N Eating Disorder N Anemia N Heart Attack ([place]) N Anxiety Disorder N Diabetes N Muscle, Joint, or Bone Problems N Seizures/Epilepsy N Acid Reflux (GERD) N Cancer N Stroke N Asthma N Allergies N ADHD N Substance Abuse N High Cholesterol N Hepatitis N Liver Disease N Schizophrenia N Headaches N Heart Failure N Osteoporosis N Past Encounters Encounter ID Performer Location Encounter Start Date Encounter Closed Date Diagnosis/Indication Diagnosis SNOMED-CT Code Diagnosis ICD10 Code Diagnosis Note [id number] Sonam Hernández PA-C [facility] [address] [place] [address] 05/20/2018 09:50:06 05/20/2018 10:50:55 Diffuse spasm of esophagus 70113976 K22.4 [id number] Sonam Hernández PA-C [facility] [address] [place] [address] 05/06/2020 11:10:16 05/06/2020 12:00:00 Seasonal allergic rhinitis 175024272 J30.2 [id number] Sonam Hernández PA-C [facility] [address] [place] [address] 11/08/2021 16:49:51 11/08/2021 17:30:25 Chronic large plaque psoriasis 606165747 L40.0 [id number] Sonam Hernández PA-C [facility] [address] [place] [address] 03/21/2022 16:54:56 03/21/2022 17:36:20 Body mass index 25-29 - overweight 431838126 Z68.26 Fatigue 46513232 R53.83 [id number] Yolie Bethea MA [facility] [address] [place] [address] 05/24/2023 11:04:37 05/28/2023 16:10:12 Lumbar spondylosis 618903271 M47.896 Fatigue 13352832 R53.83 Hypertensive disorder 38 581662 I10 Pain in ri ght hip joint 9763574951 30945 M25.317 [id number] Sonam Hernández PA-C [facility] [address] [place] [address] 11/01/2023 10:30:56 11/05/2023 10:09:05 Male hypogonadism 80900337 E29.1 Overweight [id number] E66 .3 [id number] Sonam Hernández PA-C [facility] [address] [place] [address] 11/22/2023 10:11:34 11/25/2023 16:41:40 Male hypogonadism [id number] E29.1 will increase to 1.5 ml on next fill Overweight [id number] E66 .3 [id number] Misty Wallace MA [facility] [address] [place] [address] 05/22/2024 10:46:41 05/25/2024 08:00:16 Chronic large plaque psoriasis [id number] L40.0 Male hypogonadism 949932 06 E29.1 will increase to 1.5 ml on next fill Overweight [id number] E66 .3 [id number] Misty Wallace MA [facility] [address] [place] [address] 06/26/2024 09:39:14 07/02/2024 11:09:30 Male hypogonadism 64207173 E29.1 will increase to 1.5 ml on next fill [id number] Sonam Hernández PA-C [facility] [address] [place] [address] 12/04/2024 13:50:01 12/08/2024 11:07:20 Acute low back pain [id number] M54.51 Male hypogonadism 020812 06 E29.1 will increase to 1.5 ml on next fill Overweight 439521359 E66 .3 Health Concerns Section Related Observation LastModified by Organization Detai ls LastModified Time None Recorded Concern Status LastModified by Organization Details LastModified Time None Recorded Advance Directives Directive None Recorded Payers Encounter Date Sequence Insurance Name Policy Number Policy Gunn Covered Member ID Gunn Member ID Guarantor Name 11/01/2023 1 [employer] [id number] Holger Puente [id number] Holger Sosapton 11/22/2023 1 [employer] [id number] Holger Puente [id number] Holger Puente 05/22/2024 1 [employer] [id number] Holger Puente [id number] Holger Puente 06/26/2024 1 [employer] [id number] Holger Puente [id number] Holger Puente 12/04/2024 1 [facility] (PPO) [id number] Holger Puente [id number] 1 Holger Puente Notes Date Note Type Note Provider Name and Address Organization Details Recorded Time 11/01/2023 text/html discuss testosterone... feels good ...needs labs Sonam Hernández PA-C Attn: [address] [place], [address], [facility] 11/01/2023 11:07:43 11/22/2023 text/html lab results vs testosterone... somewhat low Sonam Hernández PA-C Attn: [address] [place], [address], [facility] 11/22/2023 10:38:10 05/22/2024 text/html 6 month exam...no issues...needs refill of triamcinolone.. .all si well Misty Wallace MA null, [facility] 05/22/2024 11:08:35 12/04/2024 text/html recheck on testosterone..d oing really well..having low back pain now...describes sciatic pain...inversio n table helps.. Sonam Hernández PA-C Attn: [address] [place], [address], [facility] 12/04/2024 14:15:51
== END 2024-12-09 10:10 | disposition home or self-care (01) ==
LOC: CHSIMG 10:13
PROVIDERS: PCP Physician Assistant; Visit Provider Physician Assistant
DX: M54.41 Lumbago with sciatica, right side (principal); M51.369 Other intervertebral disc degeneration, lumbar region without mention of lumbar back pain or lower extremity pain; M43.06 Spondylolysis, lumbar region
CPT/HCPCS: 72100